=== PATIENT | female | born 1970 | race Caucasian/White ===

== ENCOUNTER 2017-07-05 19:01 | Emergency (ER) | payer OTHER ==
[~2017-07-05] VITALS: Ht 162.6 cm; Wt 78.0 kg
[2017-07-05 19:28] VITALS: BP 125/78; Ht 162.6 cm; Wt 78.0 kg
== END 2017-07-05 21:07 | disposition home or self-care (01) ==
LOC: ED 19:01
DX: M75.92 Shoulder lesion, unspecified, left shoulder (principal); M25.512 Pain in left shoulder
CPT/HCPCS: J1885